=== PATIENT | female | born 1945 | race Caucasian/White ===

== ENCOUNTER → 2017-06-26 | Outpatient (CLI) | payer MEDICARE ==
--- NOTE | 2017-06-28 08:27 | MM ---
Reason for exam: screening (asymptomatic). Last mammogram was performed 1 year and 1 month ago. History: Patient is postmenopausal and has history of other cancer at age 67. Took estrogen for 3 years. Physical Findings: A clinical breast exam by your physician is recommended on an annual basis and results should be correlated with mammographic findings. MG Screening Mammo w CAD Bilateral CC and MLO view(s) were taken. Prior study comparison: May 17, 2016, bilateral MG screening mammo w CAD. April 21, 2013, bilateral digital screening mammo w/CAD. April 18, 2012, bilateral digital screening mammo w/CAD. The breast tissue is heterogeneously dense. This may lower the sensitivity of mammography. No significant changes when compared with prior studies. ASSESSMENT: Negative, BI-RAD 1 RECOMMENDATION: Routine screening mammogram of both breasts in 1 year.
== END | disposition home or self-care (01) ==
LOC: RADMAMWWP 14:21
PROVIDERS: ATTEND Family Medicine
DX: Z12.31 Encounter for screening mammogram for malignant neoplasm of breast (principal)
CPT/HCPCS: 77067

== ENCOUNTER → 2018-07-14 | Outpatient (CLI) | payer MEDICARE ==
--- NOTE | 2018-07-14 12:33 | ECHOS ---
STRESS ECHOCARDIOGRAM DATE OF SERVICE: 07/14/2018 INDICATIONS: Shortness of breath. MEDICATIONS: Quetiapine, amlodipine, losartan, fluoxetine, metoprolol, pravastatin, Synthroid. BASELINE HEART RATE: 62 BASELINE BLOOD PRESSURE: 159/57 MAXIMUM HEART RATE: 126 MAXIMUM BLOOD PRESSURE: 210/45 85% MPHR: 127 100% MPHR: 149 METS: 7.1 MAXIMUM STAGE REACHED: II TOTAL EXERCISE TIME: CLINICAL INFORMATION: The patient was exercised for a total period of 6 minutes. The peak heart rate of 126 was achieved. Maximum blood pressure of 210/45 mmHg was noted. The resting EKG shows normal sinus rhythm with normal NC interval and QRS duration and normal ST-T waves. During the peak exercise, about 1.[address]-segment depression is noted in the inferior lateral leads. Occasional PVCs were noted. The patient complained of shortness of breath. The baseline echocardiographic images reveal normal left ventricular chamber size with normal left ventricular systolic function. In the immediate post exercise period, normal increase in the wall thickness and contractility is noted. FINAL IMPRESSION: 1. This stress echocardiographic study does not show any wall motion abnormality to suggest stress-induced ischemia. 2. EKG portion of the stress test shows 1.[address]-segment depression which could be suggestive of ischemia or secondary to change in the hypertensive heart disease. 3. Intermittent PVCs and one episode of short run of nonsustained supraventricular tachycardia was noted. 4. Clinical correlation is suggested. MONTRELL / THOMASN: [id number] /
== END | disposition home or self-care (01) ==
LOC: RADNMMAIN 08:41
PROVIDERS: ATTEND Family Medicine
DX: I49.3 Ventricular premature depolarization (principal); I47.1 Supraventricular tachycardia
CPT/HCPCS: 93351

== ENCOUNTER → 2018-08-19 | Outpatient (CLI) | payer MEDICARE ==
--- NOTE | 2018-08-19 12:54 | BD ---
EXAMINATION TYPE: Axial Bone Density DATE OF EXAM: 08/19/2018 CLINICAL HISTORY: Height: 65.5 inches Weight: 239 FRAX RISK QUESTIONS: Alcohol (3 or more units per day): no Family History (Parent hip fracture): no Glucocorticoids (More than 3mos): asthma "puffer"(Dulera) (Ex: prednisone, prednisolone, methylprednisolone, dexamethasone, and hydrocortisone). History of Fracture in Adulthood: no Secondary Osteoporosis: 1. Type 1 Diabetes: no 2. Hyperthyroidism: no 3. Menopause before 45: no 4. Malnutrition: no 5. Chronic liver disease: no Rheumatoid Arthritis: no Current Tobacco Use: no RISK FACTORS HISTORY OF: Family History of Osteoporosis: unsure Active: yes Diet low in dairy products/other sources of calcium: no Postmenopausal woman: yes Take estrogen and/or progesterone medications: not now How long: about 3 years Lost more than 2 inches in height since high school: no Frequent falls: no Poor Health: no Hyperparathyroidism: no Adrenal Insufficiency: no MEDICATIONS: Prednisone or other steroids: asthma "puffer" How Long: about 15 years Thyroid Medications: yes Which medication: Synthroid How Long: about 10 years Osteoporosis Medications: no Additional Medications: blood pressure, cholesterol , Pravastatin, Albuterol Sulfate, Amlodipine Besy late, Metoprolol Tartrate, Losartan Potassium, Ibuprupen, Omeprazole, fluoxetine, Quetiapine, Fumarat e Additional History: Fibromyalgia; bladder CA age 67 EXAM MEASUREMENTS: Bone mineral densitometry was performed using the [employer] System. Bone mineral density as measured about the Lumbar spine is: ----- L1-L4(G/cm2): 1.375 T Score Values are as follows: ----- L2: 1.3 ----- L3: 1.3 ----- L4: 2.3 ----- L1-L4: 1.6 Bone mineral density has: Increased 1.4% since study of: 05/17/2016 Bone mineral density about the R hip (g/cm2): 1.077 Bone mineral density about the L hip (g/cm2): 0.870 T Score values are as follows: -----R Neck: 0.3 -----L Neck: -1.2 -----R Total: 1.3 -----L Total: 0.6 Bone mineral density has: Decreased -1.7% since study of: 05/17/2016 IMPRESSION: No evidence for osteoporosis or osteopenia. NOTE: T-SCORE=SD OF THE YOUNG ADULT MEAN.
--- NOTE | 2018-08-20 10:30 | MM ---
Reason for exam: screening (asymptomatic). Last mammogram was performed 1 year and 2 months ago. History: Patient is postmenopausal and has history of other cancer at age 67. Took estrogen for 3 years. Physical Findings: A clinical breast exam by your physician is recommended on an annual basis and results should be correlated with mammographic findings. MG Screening Mammo w CAD Bilateral CC and MLO view(s) were taken. Prior study comparison: June 26, 2017, bilateral MG screening mammo w CAD. May 17, 2016, bilateral MG screening mammo w CAD. The breast tissue is heterogeneously dense. This may lower the sensitivity of mammography. There is no discrete abnormality. ASSESSMENT: Negative, BI-RAD 1 RECOMMENDATION: Routine screening mammogram of both breasts in 1 year.
== END | disposition home or self-care (01) ==
LOC: RADMAMWWP 08:47
PROVIDERS: ATTEND Family Medicine
DX: Z12.31 Encounter for screening mammogram for malignant neoplasm of breast (principal); Z13.820 Encounter for screening for osteoporosis
CPT/HCPCS: 77067; 77080

== ENCOUNTER 2018-09-09 08:00 | Day surgery (SDC) | payer MEDICARE ==
[2018-08-29 14:43] VITALS: BMI 38.7
[~2018-09-09 08:00] MED LIST: ALPRAZolam 0.25 MG TAB PO PRN; ALPRAZolam 0.5 MG TAB PO PRN; ASPIRIN 325 MG TAB PO STA; ATORVASTATIN 80 MG TAB PO STA; NITROGLYCERIN SL TABS 0.4 MG TAB SUBLINGUAL PRN; SODIUM CHLORIDE 0.9% 1,000 ML in EMPTY BAG 1 BAG IV ONE
[2018-09-09] MEDS ORDERED: fentaNYL (PF) 50 MCG/ML 2 ML AMP IV ONE (11:40)
[2018-09-09] MEDS ORDERED: MIDAZOLAM 2 MG/2 ML VIAL IV ONE (11:41)
[2018-09-09] MEDS ORDERED: LIDOCAINE 1% INJ 10MG/ML (20 ML MDV) SQ ONE (11:43)
[2018-09-09] MEDS: NITROGLYCERIN SL TABS 0.4 MG TAB SUBLINGUAL ONE ×3 (11:54→12:29)
[2018-09-09] MEDS ORDERED: TICAGRELOR 90 MG TAB PO ONE (12:11)
[2018-09-09] MEDS ORDERED: BIVALIRUDIN BOLUS 250 MG/50 ML IV ONE (12:34)
[2018-09-09] MEDS ORDERED: BIVALIRUDIN 250 MG in SODIUM CHLORIDE 0.9% 50 ML IV ONE (12:35)
[2018-09-09] MEDS ORDERED: NITROGLYCERIN 1000MCG/10ML SYRINGE INTRACORON ONE (12:45)
--- NOTE | 2018-09-09 12:52 | CC ---
CARDIAC CATHETERIZATION REPORT Mrs. Purdy is a 72-year-old female who was seen in the office with symptoms of evaluation of exertional shortness of breath. The stress test shows evidence of horizontal ST-segment depression on the EKG. The echocardiographic study did not show any significant wall motion abnormality. In view of the patient's coronary artery disease patient was recommended to have a cardiac catheterization for definitive diagnosis procedure the right groin was prepped and draped in the usual manner and the right femoral artery was entered using a micropuncture needle under fluoroscopic guidance. A #6-Georgian sheath was placed in. Selective coronary angiography foot was sedation. Selective coronary angiography was then performed in multiple projections and the left ventricular pressures were obtained. Patient tolerated the procedure well. HEMODYNAMICS: The left ventricular end-diastolic pressure is 16 mmHg prior to angiography. No gradient is noted across the aortic valve. Moderate sedation was used. Sedation time is 23 minutes. SELECTIVE CORONARY ANGIOGRAPHY: The left main coronary artery is normally patent. LAD is a good caliber blood vessel and gives rise to a good size diagonal branch. LAD and its branches are normal. Circumflex coronary artery is a good caliber blood vessel. Obtuse marginal branch has a minimal irregularity. Right coronary artery is a good caliber blood vessel and the mid RCA has about 70%-75% eccentric stenosis. FINAL IMPRESSION: This study reveals 75% to 80% eccentric stenosis of the mid right coronary artery. There is minimal irregularity in the obtuse marginal branch. RECOMMENDATIONS: We will review the film with Dr. Suad Michelle for possible stent to the RCA. MMODL / IJN: [id number] /
[2018-09-09] MEDS ORDERED: IOPAMIDOL-370 150ML BTL INJ ONE (12:54)
--- NOTE | 2018-09-09 13:12 | PTCA ---
PERCUTANEOUSTRANS CORORONARY ANGIOGRAPHY DATE OF SERVICE: 09/09/2018 PROCEDURE: PTCA and stenting of proximal RCA. PERFORMED BY: Dr. Suad Michelle. Moderate conscious sedation time was 20 minutes. CLINICAL INFORMATION: Mrs. Mariana Purdy is a 72-year-old lady with history of hypertension, hyperlipidemia, recent positive stress test. She underwent cardiac cath performed by Dr. Jenna Shepherd, which revealed a mild mid LAD disease and a 70% to 80% eccentric proximal RCA stenosis. She was advised intervention that was performed expeditiously. PROCEDURE NOTE: The existing 6-Tajik introducer in the right femoral artery was used to perform the procedure. A standard right Jacoby guide catheter was used to cannulate the right coronary artery. A run-through wire was used to cross the lesion. Predilatation was performed with a 3.0 caliber 12 mm Trek balloon. There was some resistance and I had to go up to 10 atmospheres. There was a small flap noted. I then deployed a 15 mm long 3.25 caliber Xience stent at 12 atmospheres. The patient did not have any significant chest pain but had significant inferior ST elevation. Excellent angiographic result was achieved without complication. Results were discussed with the patient and family. The sheath was taken out and Angio-Seal device used to secure hemostasis. Patient received Brilinta 180 mg orally. She received Angiomax bolus and infusion as per protocol. She will be discharged tomorrow if she remains stable on dual antiplatelet therapy, statin, beta blockers and other antihypertensive agents. MMODL / IJN: [id number] /
[2018-09-09] MEDS: SODIUM CHLORIDE 0.9% 1,000 ML IV SCH ×2 (14:15→22:14)
[2018-09-09] MEDS: METOPROLOL TARTRATE 50 MG TAB PO SCH (20:42)
[2018-09-09] MEDS ORDERED: amLODIPine 5 MG TAB PO STA (21:29)
[2018-09-09] MEDS ORDERED: ACETAMINOPHEN TAB 325 MG TAB PO PRN (21:30)
[2018-09-09] MEDS: QUEtiapine 100 MG TAB PO SCH (22:13)
[2018-09-10] MEDS ORDERED: LEVOTHYROXINE 100 MCG TAB PO SCH (06:30)
[2018-09-10 07:28] LABS: Calcium 9.2 mg/dL (8.4-10.2); Potassium 4.3 mmol/L (3.5-5.1)
[2018-09-10 07:58] LABS: Basophils % (A) 1 %; Eosinophils # (A) 0.5 k/uL (0-0.7); Eosinophils % (A) 10 %; HCT 40.8 % (34.0-46.0); Lymphocytes # (A) 0.9 k/uL (1.0-4.8); Lymphocytes % (A) 16 %; MCH 30.3 pg (25.0-35.0); MCHC 31.9 g/dL (31.0-37.0); MCV 94.9 fL (80.0-100.0); Mean Platelet Volume 7.6; Monocytes # (A) 0.4 k/uL (0-1.0); Monocytes % (A) 8 %; Neutrophils # (A) 3.4 k/uL (1.3-7.7); Neutrophils % (A) 63 %; Platelet Count 180 k/uL (150-450); RBC 4.29 m/uL (3.80-5.40); RDW 13.5 % (11.5-15.5); WBC 5.3 k/uL (3.8-10.6)
[2018-09-10] MEDS ORDERED: TICAGRELOR 90 MG TAB PO SCH (09:00)
[2018-09-10] MEDS ORDERED: ASPIRIN 81 MG PO SCH (09:00)
[2018-09-10] MEDS ORDERED: HYDROCHLOROTHIAZIDE 12.5 MG CAP PO SCH (09:00)
[2018-09-10] MEDS ORDERED: ATORVASTATIN 80 MG TAB PO SCH (09:00)
[2018-09-10] MEDS ORDERED: amLODIPine 10 MG TAB PO SCH (09:00)
[2018-09-10] MEDS ORDERED: LOSARTAN 50 MG TAB PO SCH (09:00)
[2018-09-10] MEDS: QUEtiapine 100 MG TAB PO SCH (09:23)
[2018-09-10] MEDS: METOPROLOL TARTRATE 50 MG TAB PO SCH (09:37)
[2018-09-10 09:55] VITALS: TEMP 98
[2018-09-10 11:41] VITALS: BP 153/69; PULSE 58; RESP 18
--- NOTE | 2018-09-10 11:44 | PN ---
PROGRESS NOTE This patient underwent cardiac catheterization yesterday. Patient was found to have 80% to 85% stenosis of the right coronary artery and underwent a stent placement without any problems. She is doing well. Denies any chest pain or shortness of breath. Right groin is normal. Patient's vital signs are stable. Patient was educated regarding the medications and will be seen in the office in 1 to 2 weeks. MMVALENTÍN / THOMASN: [id number] /
== END 2018-09-10 12:55 | disposition home or self-care (01) ==
LOC: CATHCVL 08:00 → 3SCARD 12:52 → CATHCVL 09-10 12:55
PROVIDERS: ATTEND Internal Medicine Cardiovascular Disease
DX: I25.10 Atherosclerotic heart disease of native coronary artery without angina pectoris (principal); R94.39 Abnormal result of other cardiovascular function study; E78.2 Mixed hyperlipidemia; Z82.49 Family history of ischemic heart disease and other diseases of the circulatory system; I10 Essential (primary) hypertension; Z79.899 Other long term (current) drug therapy; Z79.1 Long term (current) use of non-steroidal anti-inflammatories (NSAID); Z79.890 Hormone replacement therapy
CPT/HCPCS: 93458; 80048; 85025; C9600; C1760; C1887; C1725; C1769 ×3; C1894; C1874; J2250; J2001; J3010; J0583; Q9967

== ENCOUNTER → 2020-10-25 | Outpatient (CLI) | payer MEDICARE ==
--- NOTE | 2020-10-27 10:08 | BD ---
EXAMINATION TYPE: Axial Bone Density DATE OF EXAM: 10/25/2020 COMPARISON: DEXA bone scan 2018 CLINICAL HISTORY: Postmenopausal female. Height: 67 Weight: 247.2 FRAX RISK QUESTIONS: Alcohol (3 or more units per day): no Family History (Parent hip fracture): no Glucocorticoids (More than 3mos): no (Ex: prednisone, prednisolone, methylprednisolone, dexamethasone, and hydrocortisone). History of Fracture in Adulthood: no Secondary Osteoporosis: 1. Type 1 Diabetes: no 2. Hyperthyroidism: no 3. Menopause before 45: no 4. Malnutrition: no 5. Chronic liver disease: no Rheumatoid Arthritis: no Current Tobacco Use: no RISK FACTORS HISTORY OF: Surgery to Spine/Hip(right/left)/Wrist (right/left): no Family History of Osteoporosis: no Active: yes Diet low in dairy products/other sources of calcium: no Postmenopausal woman: yes Lost more than 2 inches in height since high school: no MEDICATIONS: scanned into pacs Prednisone or other steroids: asthma meds How Long: Additional History: EXAM MEASUREMENTS: Bone mineral densitometry was performed using the [employer] System. Bone mineral density as measured about the Lumbar spine is: ----- L1-L4(G/cm2): 1.348 T Score Values are as follows: ----- L2: 1.2 ----- L3: 1.0 ----- L4: 1.7 ----- L1-L4: 1.4 Bone mineral density has: decreased -2.9 % since study of: 08.19.2018 Bone mineral density about the R hip (g/cm2): 1.113 Bone mineral density about the L hip (g/cm2): 0.853 T Score values are as follows: -----R Neck: 0.5 -----L Neck: -1.3 -----R Total: 1.6 -----L Total: 0.8 Bone mineral density has: increased 2.6 % since study of: 08.19.2018 IMPRESSION: Osteopenia (T Score between -2.5 and -1) remains present femoral neck left hip. There remain slightly increased risk of fracture and the patient may be considered for treatment. Re-Screen 2-5 years. NOTE: T-SCORE=SD OF THE YOUNG ADULT MEAN.
--- NOTE | 2020-10-27 14:12 | MM ---
Reason for exam: screening (asymptomatic). Last mammogram was performed 2 years and 2 months ago. History: Patient is postmenopausal and has history of other cancer at age 67. Took estrogen for 3 years. Physical Findings: A clinical breast exam by your physician is recommended on an annual basis and results should be correlated with mammographic findings. MG Screening Mammo w CAD Bilateral CC and MLO view(s) were taken. Prior study comparison: August 19, 2018, bilateral MG screening mammo w CAD. June 26, 2017, bilateral MG screening mammo w CAD. The breast tissue is heterogeneously dense. This may lower the sensitivity of mammography. No significant changes when compared with prior studies. ASSESSMENT: Benign, BI-RAD 2 RECOMMENDATION: Routine screening mammogram of both breasts in 1 year.
== END | disposition home or self-care (01) ==
LOC: RADMAMWWP 15:51
PROVIDERS: ATTEND Family Medicine
DX: Z12.31 Encounter for screening mammogram for malignant neoplasm of breast (principal); Z78.0 Asymptomatic menopausal state; M85.852 Other specified disorders of bone density and structure, left thigh
CPT/HCPCS: 77067; 77080

== ENCOUNTER 2024-05-25 11:40 | Inpatient (IN) | payer MEDICARE ==
--- NOTE | 2024-05-25 11:54 | ED ---
SOB HPI - General Source: patient, RN notes reviewed Mode of arrival: wheelchair Limitations: no limitations - History of Present Illness MD Complaint: shortness of breath <Deborah Little - Last Filed: 05/25/24 11:52> - General Source: patient, family, RN notes reviewed Limitations: no limitations <Wisam Jeffrey - Last Filed: 05/25/24 15:31> - General Chief Complaint: Shortness of Breath Stated Complaint: Dyspnea Time Seen by Provider: 05/25/24 11:50 - History of Present Illness Initial Comments: Quick Note: This is a 78-year-old female who presents to the emergency department for shortness of breath. Patient reports shortness of breath for the last 3 to 4 days. Denies any chest pain. States that she saw her primary care provider today and was diagnosed with pneumonia and sent here for evaluation. (Deborah Little) Patient is a 78-year-old female present to the emergency department with concerns with shortness of breath. Onset of symptoms was 4 days ago. Patient went to the clinic today and had an x-ray with concerns for pneumonia. Patient was advised to come to emergency department. Patient had pulse ox of 82% they are on room air. Patient denies any cough. No fever. Patient does have history of asthma. No calf pain or leg swelling. (Wisam Jeffrey) - Related Data Home Medications Medication Instructions Recorded Confirmed Albuterol Inhaler [Ventolin Hfa 1 - 2 puff INHALATION RT-Q6H PRN 08/29/18 08/29/18 Inhaler] FLUoxetine HCL 40 mg PO DAILY 08/29/18 08/29/18 Levothyroxine Sodium [Synthroid] 100 mcg PO DAILY 08/29/18 09/09/18 Losartan/Hydrochlorothiazide 1 each PO DAILY 08/29/18 09/09/18 [Losartan-Hctz 100-12.5 mg Tab] Metoprolol Tartrate [Lopressor] 50 mg PO BID 08/29/18 08/29/18 Mometasone/Formoterol [Dulera 200 2 puff INHALATION BID 08/29/18 08/29/18 Mcg-5 Mcg Inhaler] Omeprazole 20 mg PO DAILY 08/29/18 09/09/18 amLODIPine BESYLATE 10 mg PO DAILY 08/29/18 08/29/18 Previous Rx's Medication Instructions Recorded Aspirin 81 mg PO DAILY #100 chew 09/10/18 Atorvastatin [Lipitor] 80 mg PO DAILY #30 tab 09/10/18 Nitroglycerin Sl Tabs [Nitrostat] 0.4 mg SUBLINGUAL Q5M PRN #25 tab 09/10/18 QUEtiapine [SEROquel] 100 mg PO DAILY tab 09/10/18 Ticagrelor [Brilinta] 90 mg PO BID #90 tab 09/10/18 Allergies Allergy/AdvReac Type Severity Reaction Status Date / Time No Known Allergies Allergy Verified 05/25/24 12:00 Review of Systems ROS Other: All systems not noted in ROS Statement are negative. <Deborah Little - Last Filed: 05/25/24 11:52> ROS Other: All systems not noted in ROS Statement are negative. Constitutional: Denies: fever Eyes: Denies: eye pain ENT: Denies: ear pain Respiratory: Reports: as per HPI, dyspnea Cardiovascular: Denies: chest pain, edema Musculoskeletal: Denies: back pain <Wisam Jeffrey - Last Filed: 05/25/24 15:31> ROS Statement: Those systems with pertinent positive or pertinent negative responses have been documented in the HPI. General Exam <Deborah Little - Last Filed: 05/25/24 11:52> Limitations: no limitations General appearance: alert, in no apparent distress Head exam: Present: normocephalic Eye exam: Present: normal appearance Neck exam: Present: normal inspection Respiratory exam: Present: rales (More anterior) Cardiovascular Exam: Present: irregular rhythm GI/Abdominal exam: Present: soft. Absent: tenderness Extremities exam: Present: normal inspection. Absent: pedal edema, calf tend erness Neurological exam: Present: alert Psychiatric exam: Present: normal affect, normal mood Skin exam: Present: normal color <Wisam Jeffrey - Last Filed: 05/25/24 15:31> - General Exam Comments Initial Comments: Visual Physical Exam Vital signs reviewed General: Well-appearing, nontoxic, no acute distress. Head: Normocephalic, atraumatic Eyes: PERRLA, EOMI ENT: Airway patent Chest: Nonlabored breathing Skin: No visual rash, normal skin tone Neuro: Alert and oriented 3 Musculoskeletal: No gross abnormalities (Deborah Little) Course Vital Signs 05/25/24 05/25/24 05/25/24 11:57 12:47 13:22 Temperature 97.3 F L Pulse Rate 112 H 85 Respiratory 20 18 Rate Blood Pressure 141/70 130/55 O2 Sat by Pulse 85 L 96 93 L Oximetry Medical Decision Making <Deborah Little - Last Filed: 05/25/24 11:52> - Lab Data Result diagrams: 05/25/24 12:47 05/25/24 12:47 <Wisam Jeffrey - Last Filed: 05/25/24 15:31> - Medical Decision Making I performed the QuickNote portion of this chart. Signed Deborah Little PA-C. (Deborah Little) EKG interpreted by myself shows A-fib with rate of 95. Normal axis. QT 348. Normal QRS. Nonspecific T waves. Was pt. sent in by a medical professional or institution (ANGELO Mcmahon, SALES COMPENSATION ANALYST, urgent care, hospital, or [facility]...) When possible be specific @ -Patient was sent in from Asael's office Did you speak to anyone other than the patient for history (EMS, parent, family, police, friend...)? What history was obtained from this source @ -No Did you review nursing and triage notes (agree or disagree)? Why? @ -I reviewed and agree with nursing and triage notes Were old charts reviewed (outside hosp., previous admission, EMS record, old EKG, old radiological studies, urgent care reports/EKG's, [facility] records)? Report findings @ -Previous chest x-ray from earlier in the day with similar findings Differential Diagnosis (chest pain, altered mental status, abdominal pain women, abdominal pain men, vaginal bleeding, weakness, fever, dyspnea, syncope, h eadache, dizziness, GI bleed, back pain, seizure, CVA, palpatations, mental health, musculoskeletal)? @ -Differential Dyspnea: Coronary syndrome, arrhythmia, tamponade, asthma, COPD, pulmonary embolism, pneumonia, pneumothorax, pulmonary effusion, anaphylaxis, diabetic ketoacidosis, flailed chest, pulmonary contusion, diaphragmatic rupture, anemia, neuromuscular, this is not meant to be an all-inclusive list. EKG interpreted by me (3pts min.). @ -As above X-rays interpreted by me (1pt min.). @ -Chest x-ray shows no multifocal l infiltrate CT interpreted by me (1pt min.). @ -None done U/S interpreted by me (1pt. min.). @ -None done What testing was considered but not performed or refused? (CT, X-rays, U/S, labs)? Why? @ -None What meds were considered but not given or refused? Why? @ -None Did you discuss the management of the patient with other professionals (professionals i.e. , PA, SALES COMPENSATION ANALYST, lab, RT, psych nurse, family welfare social work professor, specialist employee labor relations, teacher, naval gunfire liaison officer, community case manager)? Give summary @ -Case discussed with Dr. Garibay who will admit covering Dr. Guzman me and requests echo Was smoking cessation discussed for >3mins.? @ -No Was critical care preformed (if so, how long)? @ -No Were there social determinants of health that impacted care today? How? (Homelessness, low income, unemployed, alcoholism, drug addiction, transportation, low edu. Level, literacy, decrease access to med. care, assisted, rehab)? @ -No Was there de-escalation of care discussed even if they declined (Discuss DNR or withdrawal of care, Hospice)? DNR status @ -No What co-morbidities impacted this encounter? (DM, HTN, Smoking, COPD, CAD, Cancer, CVA, ARF, Chemo, Hep., AIDS, mental health diagnosis, sleep apnea, morbid obesity)? @ -History of asthma Was patient admitted / discharged? Hospital course, mention meds given and route, prescriptions, significant lab abnormalities, going to OR and other pertinent info. @ -Patient presents with dyspnea and hypoxia. Chest x-ray concerning for possible infiltrate. There is concern for pneumonia diagnosed at 1530. Blood culture and lactic acid of already been ordered. IV antibiotics will be ordered. Echo will be added. Admission orders written. Patient and family updated. Patient reevaluated. Undiagnosed new problem with uncertain prognosis? @ -No Drug Therapy requiring intensive monitoring for toxicity (Heparin, Nitro, Insu domitila, Cardizem)? @ -No Were any procedures done? @ -No Diagnosis/symptom? @ -Pneumonia Acute, or Chronic, or Acute on Chronic? @ -Acute Uncomplicated (without systemic symptoms) or Complicated (systemic symptoms)? @ -Complicated with hypoxia Side effects of treatment? @ -No Exacerbation, Progression, or Severe Exacerbation? @ -No Poses a threat to life or bodily function? How? (Chest pain, [place], [place], pneumonia, PE, COPD, DKA, ARF, appy, cholecystitis, CVA, Diverticulitis, Homicidal, Suicidal, threat to staff... and all critical care pts) @ -No (Wisam Jeffrey) - Lab Data Lab Results 05/25/24 05/25/24 05/25/24 Range/Units 12:47 12:47 12:47 WBC 8.2 (3.8-10.6) k/uL RBC 3.80 (3.80-5.40) m/uL Hgb 12.1 (11.4-16.0) gm/dL Hct 37.6 (34.0-46.0) % MCV 98.8 (80.0-100.0) fL MCH 31.9 (25.0-35.0) pg MCHC 32.3 (31.0-37.0) g/dL RDW 14.4 (11.5-15.5) % Plt Count 185 (150-450) k/uL MPV 8.2 Neutrophils % 86 % Lymphocytes % 8 % Monocytes % 5 % Eosinophils % 0 % Basophils % 0 % Neutrophils # 7.1 (1.3-7.7) k/uL Lymphocytes # 0.7 L (1.0-4.8) k/uL Monocytes # 0.4 (0-1.0) k/uL Eosinophils # 0.0 (0-0.7) k/uL Basophils # 0.0 (0-0.2) k/uL Hypochromasia Slight PT 11.0 (10.0-12.5) sec INR 1.0 (<1.2) APTT 24.2 (22.0-30.0) sec D-Dimer 0.57 (<0.60) mg/L FEU Sodium 137 (137-145) mmol/L Potassium 4.2 (3.5-5.1) mmol/L Chloride 103 (98-107) mmol/L Carbon Dioxide 26 (22-30) mmol/L Anion Gap 8 mmol/L BUN 19 H (7-17) mg/dL Creatinine 1.10 H (0.52-1.04) mg/dL Est GFR (CKD-EPI)AfAm 56 (>60 ml/min/1.73 sqM) Est GFR (CKD-EPI)NonAf 49 (>60 ml/min/1.73 sqM) Glucose 150 H (74-99) mg/dL Plasma Lactic Acid Vivek (0.7-2.0) mmol/L Calcium 9.4 (8.4-10.2) mg/dL Total Bilirubin 1.7 H (0.2-1.3) mg/dL AST 25 (14-36) U/L ALT 23 (4-34) U/L Alkaline Phosphatase 98 (38-126) U/L Troponin I (0.000-0.034) ng/mL NT-Pro-B Natriuret Pep 2180 pg/mL Total Protein 6.5 (6.3-8.2) g/dL Albumin 4.6 (3.5-5.0) g/dL Influenza Type A (PCR) (Not Detectd) Influenza Type B (PCR) (Not Detectd) RSV (PCR) (Not Detectd) SARS-CoV-2 (PCR) (Not Detectd) 05/25/24 05/25/24 05/25/24 Range/Units 12:47 12:47 12:47 WBC (3.8-10.6) k/uL RBC (3.80-5.40) m/uL Hgb (11.4-16.0) gm/dL Hct (34.0-46.0) % MCV (80.0-100.0) fL MCH (25.0-35.0) pg MCHC (31.0-37.0) g/dL RDW (11.5-15.5) % Plt Count (150-450) k/uL MPV Neutrophils % % Lymphocytes % % Monocytes % % Eosinophils % % Basophils % % Neutrophils # (1.3-7.7) k/uL Lymphocytes # (1.0-4.8) k/uL Monocytes # (0-1.0) k/uL Eosinophils # (0-0.7) k/uL Basophils # (0-0.2) k/uL Hypochromasia PT (10.0-12.5) sec INR (<1.2) APTT (22.0-30.0) sec D-Dimer (<0.60) mg/L FEU Sodium (137-145) mmol/L Potassium (3.5-5.1) mmol/L Chloride (98-107) mmol/L Carbon Dioxide (22-30) mmol/L Anion Gap mmol/L BUN (7-17) mg/dL Creatinine (0.52-1.04) mg/dL Est GFR (CKD-EPI)AfAm (>60 ml/min/1.73 sqM) Est GFR (CKD-EPI)NonAf (>60 ml/min/1.73 sqM) Glucose (74-99) mg/dL Plasma Lactic Acid Vivek 1.5 (0.7-2.0) mmol/L Calcium (8.4-10.2) mg/dL Total Bilirubin (0.2-1.3) mg/dL AST (14-36) U/L ALT (4-34) U/L Alkaline Phosphatase (38-126) U/L Troponin I <0.012 (0.000-0.034) ng/mL NT-Pro-B Natriuret Pep pg/mL Total Protein (6.3-8.2) g/dL Albumin (3.5-5.0) g/dL Influenza Type A (PCR) Not Detected (Not Detectd) Influenza Type B (PCR) Not Detected (Not Detectd) RSV (PCR) Not Detected (Not Detectd) SARS-CoV-2 (PCR) Not Detected (Not Detectd) Disposition <Deborah Little - Last Filed: 05/25/24 11:52> Is patient prescribed a controlled substance at d/c from ED?: No Time of Disposition: 15:31 <Wisam Jeffrey - Last Filed: 05/25/24 15:31> Clinical Impression: Pneumonia Disposition: ADMITTED IP TO THIS HOSP Referrals: Ricki Gordon DO [Primary Care Provider] - 1-2 days
[2024-05-25 12:55] LABS: Basophils % (A) 0 %; Eosinophils % (A) 0 %; HCT 37.6 % (34.0-46.0); HGB 12.1 gm/dL (11.4-16.0); Hypochromasia Slight; Lymphocytes # (A) 0.7 k/uL (1.0-4.8); Lymphocytes % (A) 8 %; MCH 31.9 pg (25.0-35.0); MCHC 32.3 g/dL (31.0-37.0); MCV 98.8 fL (80.0-100.0); Mean Platelet Volume 8.2; Monocytes # (A) 0.4 k/uL (0-1.0); Monocytes % (A) 5 %; Neutrophils # (A) 7.1 k/uL (1.3-7.7); Neutrophils % (A) 86 %; Platelet Count 185 k/uL (150-450); RDW 14.4 % (11.5-15.5); WBC 8.2 k/uL (3.8-10.6)
[2024-05-25 13:04] LABS: ALT 23 U/L (4-34); AST 25 U/L (14-36); African American GFR (CKD) 56 (>60 ml/min/1.73 sqM); Albumin 4.6 g/dL (3.5-5.0); Alkaline Phosphatase 98 U/L (38-126); Anion Gap 8 mmol/L; Blood Urea Nitrogen 19 mg/dL (7-17); Calcium 9.4 mg/dL (8.4-10.2); Carbon Dioxide 26 mmol/L (22-30); Chloride 103 mmol/L (98-107); Glucose 150 mg/dL (74-99); Non-African American GFR(CKD) 49 (>60 ml/min/1.73 sqM); Potassium 4.2 mmol/L (3.5-5.1); Sodium 137 mmol/L (137-145); Total Bilirubin 1.7 mg/dL (0.2-1.3); Total Protein 6.5 g/dL (6.3-8.2)
[2024-05-25 13:13] LABS: NT-Pro-B-Type Natriuretic Pept 2180 pg/mL
--- NOTE | 2024-05-25 13:27 | XR ---
EXAMINATION TYPE: XR chest 2V DATE OF EXAM: 05/25/2024 1:13 PM COMPARISON: Chest radiographs from 05/25/2024. CLINICAL INDICATION: Female, 78 years old with history of JAIMIE; TECHNIQUE: XR chest 2V Frontal and lateral views of the chest. FINDINGS: Lungs/Pleura: There is no evidence of pleural effusion, focal consolidation, or pneumothorax. Pulmonary vascularity: Unremarkable. Heart/mediastinum: Cardiomediastinal silhouette is prominent in size. Musculoskeletal: No acute osseous pathology. IMPRESSION: Similar multifocal airspace opacities. Correlate with serum BNP to exclude a component of congestive heart failure. [facility], , 05/25/2024 1:25 PM
[2024-05-25 13:30] LABS: Partial Thromboplastin Time 24.2 sec (22.0-30.0)
[2024-05-25] MEDS ORDERED: IPRATROPIUM-ALBUTEROL 3 ML NEB INHALATION PRN (15:31)
[2024-05-25] MEDS ORDERED: PNEUMONIA PROTOCOL UTILIZED 1 EACH MISC PO PRN (15:31)
[2024-05-25] MEDS: AZITHROMYCIN 500 MG in SODIUM CHLORIDE 0.9% 250 ML IVPB STA (16:12)
[2024-05-25] MEDS: IPRATROPIUM-ALBUTEROL 3 ML NEB INHALATION SCH (16:51)
[2024-05-25] MEDS ORDERED: NITROGLYCERIN SL TABS 0.4 MG TAB SUBLINGUAL PRN (18:30)
[2024-05-25] MEDS ORDERED: ALBUTEROL NEBULIZED 2.5 MG/3 ML INHALATION PRN (18:30)
[2024-05-25] MEDS ORDERED: DEXTROSE 50% SYRINGE 50 ML IVP PRN ×2 (18:32)
--- NOTE | 2024-05-25 19:45 | P.HPIM ---
History of Present Illness H&P Date: 05/25/24 Patient is a 78-year-old female with a past medical history of asthma, psj-[id number] diabetes mellitus, hypertension, CAD with 1 stent, atrial fibrillation maintained on Eliquis, and hypothyroidism presented with several days of dyspnea. She states that she was told today that she has pneumonia based off of an x-ray outpatient. She states that she had at home pulse ox reading of 82% on room air. She endorses orthopnea. She denies fever, chest pain, abdominal pain, calf/leg pain/swelling. Initial EKG independently interpreted: Atrial fibrillation. Initial chest x-ray: Multifocal airspace opacities, correlate serum BNP to exclude component of congestive heart failure. Initial labs: WBCs 8.2, hemoglobin 12.7, hematocrit 37.6, PT 11, INR 1, APTT 24.2, D-dimer 0.57, sodium 137, potassium 4.2, chloride 103, CO2 26, BUN 19, creatinine 1.10, glucose 150, lactic acid 1.5, calcium 9.4, total bilirubin 1.7, troponin X1 <0.012, BNP 2180. Initial labs: T 97.3 F, NJ 112, RR 20, BP 141/70, O2 sat 85% on room air. ED documentation reviewed. Review of systems: Pertinent positives and negatives as discussed in HPI, a complete review of systems was performed and all other systems are negative. Social history: Tobacco: Never smoker Alcohol: Occasional Recreational drugs: None reported Travel: None reported Sick contacts: None reported Physical examination: Vital signs reviewed General: Nontoxic, no distress, appears stated age, well-appearing Derm: Warm, dry, intact Head: Atraumatic, normocephalic, symmetric Eyes: EOMI, anicteric sclera Mouth: No lip lesion, mucus membranes moist Cardiovascular: S1-S2 regular, no murmur Lungs: CTA bilateral, no rhonchi, no rales, no accessory muscle use Abdominal: Soft, non-tender to palpation Extremities: No cyanosis, clubbing, or pedal edema Neuro: Alert, oriented x 3, gross neurological examination did not reveal any focal deficits. Cranial nerves II to XII grossly intact. Psych: Appropriate affect and mood Assessment and Plan: Patient is a 78-year-old female with past medical history significant for asthma, joj-fswykbu-xddmknuse diabetes mellitus, hypertension, CAD with 1 stent, atrial fibrillation maintained on Eliquis, hypothyroidism admitted for dyspnea. Active #. Dyspnea, possible heart failure exacerbation #. Acute hypoxic respiratory failure Unlikely pneumonia diagnosis: No signs and symptoms of sepsis, no leukocytosis, pending procalcitonin Obtain procalcitonin Oxygen supplementation as needed to maintain O2 saturation >94% DuoNeb 4 times daily and as needed Azithromycin 500 mg PO daily IV ceftriaxone 2 g daily Will de-escalate abx based on procalcitonin Echo is pending to r/o HF strict I/Os, daily weights No lasix or IVF for now Chronic #. Asthma Singulair 10 mg PO daily Albuterol PRN #. Hypertension Losartan 100 mg PO daily Metoprolol tartrate 50 mg PO twice daily Amlodipine 10 mg PO daily #. Mty-vzilqet-exwokxhuy diabetes mellitus Hold home metformin Insulin sliding scale Accu-Cheks ACHS Hypoglycemic precautions #. A-fib Eliquis 5 mg PO daily Metoprolol as above #. Hypothyroidism Synthroid 112 mcg PO daily #. History of CAD x 1 stent Lipitor 80 mg PO daily #. Anxiety/depression Prozac 60 mg PO daily Seroquel 100 mg PO at bedtime DVT prophylaxis: Eliquis 5 mg PO twice daily The patient is admitted with an anticipated less than 2 midnight stay for evaluation of dyspnea. CODE STATUS: Full code Discussed with: Dr. Decker Anticipated discharge place: Home Past Medical History Past Medical History: Asthma, Diabetes Mellitus, Hyperlipidemia, Hypertension, Thyroid Disorder History of Any Multi-Drug Resistant Organisms: None Reported Past Surgical History: No Surgical Hx Reported Past Psychological History: No Psychological Hx Reported Smoking Status: Never smoker Past Alcohol Use History: Occasional Past Drug Use History: None Reported Medications and Allergies Home Medications Medication Instructions Recorded Confirmed Type Albuterol Inhaler [Ventolin Hfa 2 puff INHALATION RT-Q6H PRN 08/29/18 05/25/24 History Inhaler] FLUoxetine HCL 40 mg PO DAILY 08/29/18 05/25/24 History Metoprolol Tartrate [Lopressor] 50 mg PO BID 08/29/18 05/25/24 History amLODIPine BESYLATE 10 mg PO DAILY 08/29/18 05/25/24 History Nitroglycerin Sl Tabs [Nitrostat] 0.4 mg SUBLINGUAL Q5M PRN #25 tab 09/10/18 05/25/24 Rx Apixaban [Eliquis] 5 mg PO BID 05/25/24 05/25/24 History FLUoxetine HCL [PROzac] 20 mg PO DAILY 05/25/24 05/25/24 History Levothyroxine Sodium [Synthroid] 112 mcg PO DAILY 05/25/24 05/25/24 History Losartan Potassium [Cozaar] 100 mg PO DAILY 05/25/24 05/25/24 History Montelukast [Singulair] 10 mg PO DAILY 05/25/24 05/25/24 History QUEtiapine [SEROquel] 100 mg PO HS 05/25/24 05/25/24 History Rosuvastatin Calcium [Crestor] 40 mg PO DAILY 05/25/24 05/25/24 History metFORMIN HCL [Glucophage] 500 mg PO BID 05/25/24 05/25/24 History Allergies Allergy/AdvReac Type Severity Reaction Status Date / Time No Known Allergies Allergy Verified 05/25/24 16:26 Physical Exam Osteopathic Statement: *. No significant issues noted on an osteopathic structural exam other than those noted in the History and Physical/Consult. Vitals: Vital Signs Temp Pulse Resp BP Pulse Ox 05/25/24 13:22 85 18 130/55 93 L 05/25/24 12:47 96 05/25/24 11:57 97.3 F L 112 H 20 141/70 85 L Intake and Output 05/24/24 05/25/24 05/25/24 22:59 06:59 14:59 Other: Weight 104.326 kg Results CBC & Chem 7: 05/25/24 12:47 05/25/24 12:47 Labs: Abnormal Lab Results - Last 24 Hours (Table) 05/25/24 05/25/24 Range/Units 12:47 12:47 Lymphocytes # 0.7 L (1.0-4.8) k/uL BUN 19 H (7-17) mg/dL Creatinine 1.10 H (0.52-1.04) mg/dL Glucose 150 H (74-99) mg/dL Total Bilirubin 1.7 H (0.2-1.3) mg/dL
[2024-05-25] MEDS: APIXABAN 5 MG TAB PO SCH (20:44)
[2024-05-25] MEDS: METOPROLOL TARTRATE 50 MG TAB PO SCH (20:45)
[2024-05-25] MEDS: QUEtiapine 100 MG TAB PO SCH (20:45)
[2024-05-25 20:52] LABS: Glucose,Whole Blood 137 mg/dL (70-110)
[2024-05-25] MEDS: INSULIN ASPART (NovoLOG) 100 UNIT/ML VIAL SQ SCH (21:01)
[2024-05-26 04:40] LABS: Basophils % (A) 0 %; Eosinophils % (A) 1 %; HCT 36.8 % (34.0-46.0); HGB 11.8 gm/dL (11.4-16.0); Lymphocytes # (A) 0.8 k/uL (1.0-4.8); Lymphocytes % (A) 14 %; MCH 31.6 pg (25.0-35.0); MCV 98.6 fL (80.0-100.0); Macrocytosis Slight; Mean Platelet Volume 8.3; Monocytes # (A) 0.4 k/uL (0-1.0); Monocytes % (A) 7 %; Neutrophils # (A) 4.4 k/uL (1.3-7.7); Neutrophils % (A) 77 %; Platelet Count 170 k/uL (150-450); RBC 3.73 m/uL (3.80-5.40); RDW 14.9 % (11.5-15.5); WBC 5.8 k/uL (3.8-10.6)
[2024-05-26 04:57] LABS: African American GFR (CKD) 58 (>60 ml/min/1.73 sqM); Anion Gap 5 mmol/L; Blood Urea Nitrogen 15 mg/dL (7-17); Calcium 9.4 mg/dL (8.4-10.2); Carbon Dioxide 25 mmol/L (22-30); Chloride 106 mmol/L (98-107); Glucose 106 mg/dL (74-99); Magnesium 2.2 mg/dL (1.6-2.3); Non-African American GFR(CKD) 51 (>60 ml/min/1.73 sqM); Potassium 4.3 mmol/L (3.5-5.1); Sodium 136 mmol/L (137-145)
[2024-05-26] MEDS: LEVOTHYROXINE 112 MCG TAB PO SCH (06:08)
[2024-05-26 06:40] LABS: Glucose,Whole Blood 111 mg/dL (70-110)
--- NOTE | 2024-05-26 08:41 | XR ---
EXAMINATION TYPE: XR chest 2V DATE OF EXAM: 05/26/2024 5:28 AM COMPARISON: Chest radiograph from one day prior. CLINICAL INDICATION: Female, 78 years old with history of pneumonia; [facility] TECHNIQUE: XR chest 2V Frontal and lateral views of the chest. FINDINGS: Lungs/Pleura: Similar multifocal airspace opacities. No evidence of pneumothorax or pleural effusion. Pulmonary vascularity: Unremarkable. Heart/mediastinum: Cardiomediastinal silhouette is unremarkable. Musculoskeletal: No acute osseous pathology. IMPRESSION: Similar multifocal airspace opacities. [facility], , 05/26/2024 8:39 AM
[2024-05-26] MEDS: FLUoxetine HCL 20 MG CAP PO SCH ×2 (09:10→09:14)
[2024-05-26] MEDS: LOSARTAN 50 MG TAB PO SCH (09:10)
[2024-05-26] MEDS: ATORVASTATIN 80 MG TAB PO SCH (09:10)
[2024-05-26] MEDS: amLODIPine 10 MG TAB PO SCH (09:11)
[2024-05-26] MEDS: MONTELUKAST 10 MG TAB PO SCH (09:11)
--- NOTE | 2024-05-26 11:31 | CA ---
Transthoracic Echo Report Name: Mariana Purdy Age: 78 Gender: F : 1945 Exam Date: 05/26/2024 08:39 Exam Location: [place] [facility] Ht (in): 66 Wt (lb): 230 Ordering Physician: Wisam Jeffrey DO Attending/Referring Phys: Secretary Receptionist Ivana Ibarra RDCS Procedure CPT: Indications: JAIMIE Cardiac Hx: Technical Quality: Fair Contrast 1: Total Dose (mL): Contrast 2: Total Dose (mL): MEASUREMENTS (Male / Female) Normal Values 2D ECHO LV Diastolic Diameter PLAX 4.1 cm 4.2 - 5.9 / 3.9 - 5.3 cm LV Systolic Diameter PLAX 3.1 cm IVS Diastolic Thickness 1.2 cm 0.6 - 1.0 / 0.6 - 0.9 cm LVPW Diastolic Thickness 1.0 cm 0.6 - 1.0 / 0.6 - 0.9 cm LV Relative Wall Thickness 0.5 LVOT Diameter 2.1 cm LV Diastolic Volume MOD BP 84.0 cm??? 67 - 155 / 56 - 104 cm??? LV Systolic Volume MOD BP 37.6 cm??? 22 - 58 / 19 - 49 cm??? LV Ejection Fraction MOD BP 55.2 % >= 55 % LV Cardiac Index MOD BP 1813.6 cm???/min???m??? LV Diastolic Volume MOD 4C 80.9 cm??? LV Systolic Volume MOD 4C 33.7 cm??? LV Ejection Fraction MOD 4C 58.3 % LV Cardiac Index MOD 4C 1843.4 cm???/min???m??? LV Diastolic Length 4C 7.3 cm LV Systolic Length 4C 6.3 cm LV Diastolic Volume MOD 2C 87.1 cm??? LV Systolic Volume MOD 2C 40.7 cm??? LV Ejection Fraction MOD 2C 53.3 % LV Cardiac Index MOD 2C 1816.4 cm???/min???m??? LV Diastolic Length 2C 7.4 cm LV Systolic Length 2C 6.1 cm LA Volume 71.0 cm??? 18 - 58 / 22 - 52 cm??? LA Volume Index 31.6 cm???/m??? 16 - 28 cm???/m??? Ascending Aorta Diameter 3.0 cm DOPPLER AV Peak Velocity 114.0 cm/s AV Peak Gradient 5.2 mmHg AV Mean Velocity 90.1 cm/s AV Mean Gradient 3.4 mmHg AV Velocity Time Integral 26.1 cm LVOT Peak Velocity 101.8 cm/s LVOT Peak Gradient 4.1 mmHg LVOT Velocity Time Integral 21.4 cm LVOT Stroke Volume 73.4 cm??? LVOT Stroke Volume Index 34.6 ml/m??? LVOT Cardiac Index 2869.9 cm???/min???m??? AV Area Cont Eq vti 2.8 cm??? AV Area Cont Eq pk 3.1 cm??? MV Peak Velocity 146.5 cm/s MV Peak Gradient 8.6 mmHg MV Mean Velocity 86.5 cm/s MV Mean Gradient 3.7 mmHg MV Velocity Time Integral 25.3 cm TR Peak Velocity 262.6 cm/s TR Peak Gradient 27.6 mmHg Right Atrial Pressure 20.0 mmHg Pulmonary Artery Systolic Pressu 47.6 mmHg Right Ventricular Systolic Press 47.6 mmHg PV Peak Velocity 87.3 cm/s PV Peak Gradient 3.0 mmHg FINDINGS Left Ventricle Left ventricular ejection fraction is estimated at 55-60 %. Mildly increased septal wall thickness. Mildly increased posterior wall thickness. Left ventricular cavity size normal. No obvious regional wall motion abnormalities. Right Ventricle Normal right ventricular size and function. Moderate pulmonary hypertension. Right Atrium Right atrial dilatation. Left Atrium Mildly increased left atrial volume. Mildly increased left atrial area. Mitral Valve Structurally normal mitral valve. Mitral annular calcification. No evidence for mitral valve prolapse. Mild mitral stenosis. Mild mitral regurgitation. Aortic Valve Trileaflet aortic valve. No aortic valve stenosis or regurgitation. Tricuspid Valve Structurally normal tricuspid valve. No tricuspid stenosis. Mild tricuspid regurgitation. Pulmonic Valve Pulmonic valve not well visualized. No pulmonic stenosis. Trace pulmonic regurgitation. Pericardium Small posterior pericardial effusion. Prominent epicardial fat. Aorta Normal size aortic root and proximal ascending aorta. CONCLUSIONS Normal LV function Moderate pulmonary hypertension Mild mitral stenosis and regurgitation Previewed by: Dr. Torres Kate MD (Electronically Signed) Final Date: 26 May 2024 11:31
[2024-05-26 11:55] LABS: Glucose,Whole Blood 100 mg/dL (70-110)
[2024-05-26 12:43] VITALS: BMI 38.7
[2024-05-26] MEDS ORDERED: AZITHROMYCIN 500 MG TAB PO SCH (16:00)
[2024-05-26 16:42] LABS: Glucose,Whole Blood 113 mg/dL (70-110)
--- NOTE | 2024-05-26 17:36 | P.PN ---
Subjective Progress Note Date: 05/26/24 No new complaints. Breathing has improved. Awaiting echo. Gen: In NAD, non-toxic HEENT: normocephalic, atraumatic, hearing acuity is intant, mucous membranes moist CVS: perfusing all extremities well, no pitting edema, Respiratory: symmetric chest expansion, no accessory muscle use, GI: soft, NTTP, ND, : no suprapubic tenderness, no CVA tenderness MSK/Derm: no rashes, cyanosis Neuro: CN II-XII intact, no motor weakness, Psych: cooperative, euthymic mood, judgment and insight is intact Hospital course: Patient is a 78-year-old female with a past medical history of asthma, ywm-hqpcdxr-erjbfzgbk diabetes mellitus, hypertension, CAD with 1 stent, atrial fibrillation maintained on Eliquis, and hypothyroidism presented with several days of dyspnea. Initial EKG independently interpreted: Atrial fibrillation. Initial chest x-ray: Multifocal airspace opacities, correlate serum BNP to e xclude component of congestive heart failure. Initial labs: WBCs 8.2, hemoglobin 12.7, hematocrit 37.6, PT 11, INR 1, APTT 24.2, D-dimer 0.57, sodium 137, potassium 4.2, chloride 103, CO2 26, BUN 19, creatinine 1.10, glucose 150, lactic acid 1.5, calcium 9.4, total bilirubin 1.7, troponin X1 <0.012, BNP 2180. Initial labs: T 97.3 F, [place] 112, RR 20, BP 141/70, O2 sat 85% on room air. Assessment and Plan: Patient is a 78-year-old female with past medical history significant for asthma, twr-lzuijsx-kfvanzcsv diabetes mellitus, hypertension, CAD with 1 stent, atrial fibrillation maintained on Eliquis, hypothyroidism admitted for dyspnea. Active #. Dyspnea, r/t Viral pneumonia #. Acute hypoxic respiratory failure No signs and symptoms of sepsis, no leukocytosis, PC is low, abx discontinued Oxygen supplementation as needed to maintain O2 saturation >94% DuoNeb 4 times daily and as needed Echo is pending to r/o HF, shows mod pHTN, normal EF strict I/Os, daily weights No lasix or IVF for now Chronic #. Asthma Singulair 10 mg PO daily Albuterol PRN #. Hypertension Losartan 100 mg PO daily Metoprolol tartrate 50 mg PO twice daily Amlodipine 10 mg PO daily #. Oqd-licehem-ooavebppi diabetes mellitus Hold home metformin Insulin sliding scale Accu-Cheks ACHS Hypoglycemic precautions #. A-fib Eliquis 5 mg PO daily Metoprolol as above #. Hypothyroidism Synthroid 112 mcg PO daily #. History of CAD x 1 stent Lipitor 80 mg PO daily #. Anxiety/depression Prozac 60 mg PO daily Seroquel 100 mg PO at bedtime DVT prophylaxis: Eliquis 5 mg PO twice daily The patient is admitted with an anticipated less than 2 midnight stay for evaluation of dyspnea. CODE STATUS: Full code Discharge date: tomorrow with supportive care Anticipated discharge place: Home Objective - Vital Signs Vital signs: Vital Signs Temp 97.9 F 05/26/24 13:33 Pulse 88 05/26/24 16:11 Resp 17 05/26/24 13:33 BP 132/78 05/26/24 13:33 Pulse Ox 95 05/26/24 13:33 FiO2 Intake & Output 05/25/24 05/26/24 05/26/24 18:59 06:59 18:59 Weight 104.326 kg 109 kg 109 kg Other: # Voids 0 - Labs CBC & Chem 7: 05/26/24 04:19 05/26/24 04:19 Labs: Abnormal Lab Results - Last 24 Hours (Table) 05/25/24 05/26/24 05/26/24 Range/Units 20:51 04:19 04:19 RBC 3.73 L (3.80-5.40) m/uL Lymphocytes # 0.8 L (1.0-4.8) k/uL Sodium (137-145) mmol/L Creatinine (0.52-1.04) mg/dL Glucose (74-99) mg/dL POC Glucose (mg/dL) 137 H (70-110) mg/dL Hemoglobin A1c 6.2 H (<=6.0) % 05/26/24 05/26/24 05/26/24 Range/Units 04:19 06:39 16:40 RBC (3.80-5.40) m/uL Lymphocytes # (1.0-4.8) k/uL Sodium 136 L (137-145) mmol/L Creatinine 1.07 H (0.52-1.04) mg/dL Glucose 106 H (74-99) mg/dL POC Glucose (mg/dL) 111 H 113 H (70-110) mg/dL Hemoglobin A1c (<=6.0) % Microbiology - Last 24 Hours (Table) 05/25/24 12:47 Blood Culture - Preliminary Blood
[2024-05-26 20:43] LABS: Glucose,Whole Blood 112 mg/dL (70-110)
[2024-05-27 06:37] LABS: Glucose,Whole Blood 124 mg/dL (70-110)
[2024-05-27 08:24] VITALS: TEMP 98
[2024-05-27 12:17] LABS: Glucose,Whole Blood 109 mg/dL (70-110)
[2024-05-27 12:30] VITALS: BP 128/70; PULSE 78
[2024-05-27 14:16] VITALS: RESP 18
--- NOTE | 2024-05-27 15:10 | P.DS ---
Providers Date of admission: 05/25/24 15:31 Expected date of discharge: 05/27/24 Attending physician: Lavon Decker MD [facility] Course: Hospital Course: Patient is a 78-year-old female with a past medical history of asthma, ydk-blxegyf-qliskqbok diabetes mellitus, hypertension, CAD with 1 stent, atrial fibrillation maintained on Eliquis, and hypothyroidism presented with several days of dyspnea. She states that she was told today that she has pneumonia based off of an x-ray outpatient. She states that she had at home pulse ox reading of 82% on room air. She endorses orthopnea. She denies fever, chest pain, abdominal pain, calf/leg pain/swelling. Initial EKG independently interpreted: Atrial fibrillation. Initial chest x-ray: Multifocal airspace opacities, correlate serum BNP to exclude component of congestive heart failure. Initial labs: WBCs 8.2, hemoglobin 12.7, hematocrit 37.6, PT 11, INR 1, APTT 24.2, D-dimer 0.57, sodium 137, potassium 4.2, chloride 103, CO2 26, BUN 19, creatinine 1.10, glucose 150, lactic acid 1.5, calcium 9.4, total bilirubin 1.7, troponin X1 <0.012, BNP 2180. Initial labs: T 97.3 F, [place] 112, RR 20, BP 141/70, O2 sat 85% on room air. Echocardiogram showed normal LV systolic function, and moderate pulmonary hypertension. No concern for pneumonia. Patient was noted to have O2 saturation to 84% while walking on room air. Prescription written for home oxygen. Recommended that patient follow up outpatient with biomedical equipment specialist. Patient is medically optimized for discharge. Final Diagnosis: #. Acute hypoxic respiratory failure, possibly from pulmonary fibrosis #Pulmonary hypertension #. Asthma, chronic #. History of CAD x 1 stent #. Hypertension #. Eho-fcpinsp-skuvuufly diabetes mellitus #. Paroxysmal atrial fibrillation on Eliquis #. Hypothyroidism #. Anxiety/depression Physical examination: Vital signs reviewed General: Nontoxic, no distress, appears stated age, well-appearing Derm: Warm, dry, intact Head: Atraumatic, normocephalic, symmetric Eyes: EOMI, anicteric sclera Mouth: No lip lesion, mucus membranes moist Cardiovascular: S1-S2 regular, no murmur Lungs: CTA bilateral, no rhonchi, no rales, no accessory muscle use Abdominal: Soft, non-tender to palpation Extremities: No cyanosis, clubbing, or pedal edema Neuro: Alert, oriented x 3, gross neurological examination did not reveal any focal deficits. Cranial nerves II to XII grossly intact. A total of 33 minutes of time were spent preparing this complex discharge summary. Patient was discharged on 05/27/2024 at 1138. I have seen and evaluated the patient today. Discussed with the resident and agree with the residents finding and plan as documented in the resident's note. Changes highlighted in blue font. Patient Condition at Discharge: Stable Plan - Discharge Summary Discharge Rx Participant: Yes New Discharge Prescriptions: Continue Metoprolol Tartrate [Lopressor] 50 mg PO BID amLODIPine BESYLATE 10 mg PO DAILY Albuterol Inhaler [Ventolin Hfa Inhaler] 2 puff INHALATION RT-Q6H PRN PRN Reason: ASTHMA FLUoxetine HCL 40 mg PO DAILY Nitroglycerin Sl Tabs [Nitrostat] 0.4 mg SUBLINGUAL Q5M PRN #25 tab PRN Reason: Chest Pain Levothyroxine Sodium [Synthroid] 112 mcg PO DAILY metFORMIN HCL [Glucophage] 500 mg PO BID Apixaban [Eliquis] 5 mg PO BID Montelukast [Singulair] 10 mg PO DAILY FLUoxetine HCL [PROzac] 20 mg PO DAILY Rosuvastatin Calcium [Crestor] 40 mg PO DAILY Losartan Potassium [Cozaar] 100 mg PO DAILY QUEtiapine [SEROquel] 100 mg PO HS Discharge Medication List Albuterol Inhaler [Ventolin Hfa Inhaler] 2 puff INHALATION RT-Q6H PRN 08/29/18 [History] FLUoxetine HCL 40 mg PO DAILY 08/29/18 [History] Metoprolol Tartrate [Lopressor] 50 mg PO BID 08/29/18 [History] amLODIPine BESYLATE 10 mg PO DAILY 08/29/18 [History] Nitroglycerin Sl Tabs [Nitrostat] 0.4 mg SUBLINGUAL Q5M PRN #25 tab 09/10/18 [Rx] Apixaban [Eliquis] 5 mg PO BID 05/25/24 [History] FLUoxetine HCL [PROzac] 20 mg PO DAILY 05/25/24 [History] Levothyroxine Sodium [Synthroid] 112 mcg PO DAILY 05/25/24 [History] Losartan Potassium [Cozaar] 100 mg PO DAILY 05/25/24 [History] Montelukast [Singulair] 10 mg PO DAILY 05/25/24 [History] QUEtiapine [SEROquel] 100 mg PO HS 05/25/24 [History] Rosuvastatin Calcium [Crestor] 40 mg PO DAILY 05/25/24 [History] metFORMIN HCL [Glucophage] 500 mg PO BID 05/25/24 [History] Follow up Appointment(s)/Referral(s): [facility] [NON-STAFF] - Oneal Patiño DO [Doctor of Osteopathic Medicine] - 1 Week Ricki Gordon DO [Primary Care Provider] - 1-2 days Patient Instructions/Handouts: Hypoxia (GEN) Activity/Diet/Wound Care/Special Instructions: Please see your PCP and biomedical equipment specialist. You will likely need CT of your chest to further determine cause of low oxygen. Discharge Disposition: HOME SELF-CARE
== END 2024-05-27 14:15 | disposition home or self-care (01) | DRG 189 ==
LOC: EC 11:40 → 4SSUR 15:31 → 1SOBS 19:35
PROVIDERS: ADMIT Internal Medicine; ATTEND Internal Medicine
DX: J96.01 Acute respiratory failure with hypoxia (principal); J84.10 Pulmonary fibrosis, unspecified; J45.909 Unspecified asthma, uncomplicated; E11.9 Type 2 diabetes mellitus without complications; I10 Essential (primary) hypertension; I25.10 Atherosclerotic heart disease of native coronary artery without angina pectoris; I48.0 Paroxysmal atrial fibrillation; E03.9 Hypothyroidism, unspecified; I27.20 Pulmonary hypertension, unspecified; F32.A Depression, unspecified; F41.9 Anxiety disorder, unspecified; Z79.84 Long term (current) use of oral hypoglycemic drugs; Z79.890 Hormone replacement therapy; Z79.899 Other long term (current) drug therapy; Z79.82 Long term (current) use of aspirin; E78.5 Hyperlipidemia, unspecified; Z79.01 Long term (current) use of anticoagulants; Z79.02 Long term (current) use of antithrombotics/antiplatelets
CPT/HCPCS: 36415; 71046; 80048; 80053; 83036; 83605; 83735; 83880; 84145; 84484; 85025; 85379; 85610; 85730; 87040; 87449; 87636; 93005; 93306; 94640; 94760; 96365; 96367; 99285

== ENCOUNTER → 2024-05-25 | Outpatient (CLI) | payer MEDICARE ==
--- NOTE | 2024-05-25 10:12 | XR ---
EXAMINATION TYPE: XR chest 2V DATE OF EXAM: 05/25/2024 9:48 AM COMPARISON: Chest radiographs from 12/12/2018. CLINICAL INDICATION: Female, 78 years old with history of R0602 SOB; TECHNIQUE: XR chest 2V Frontal and lateral views of the chest. FINDINGS: Lungs/Pleura: There is no evidence of pleural effusion, focal consolidation, or pneumothorax. Pulmonary vascularity: Unremarkable. Heart/mediastinum: Cardiomediastinal silhouette is unremarkable. Musculoskeletal: No acute osseous pathology. IMPRESSION: Interstitial lung disease changes without acute pulmonary process. [facility], , 05/25/2024 10:10 AM
== END | disposition home or self-care (01) ==
LOC: RADXRYALE 09:38
PROVIDERS: ATTEND Physician Assistant
DX: J84.9 Interstitial pulmonary disease, unspecified (principal); R06.02 Shortness of breath
CPT/HCPCS: 71046